=== PATIENT | female | born 1930 | race Two or more races ===

== ENCOUNTER 2017-02-01 18:06 | Emergency (ER) | payer MEDICARE, OTHER ==
--- NOTE | 2017-02-01 20:20 | UC ---
Ear Complaint HPI - HPI Summary HPI Summary: HEARING LOSS LEFT EAR PAST 1 WEEK. ALSO REPORTS PAIN IN LEFT LOWER JAW FOR SEVERAL WEEKS. SEES A DENTIST EVERY 6 MONTHS ([facility]) BUT THINKS MAYBE A FILLING BROKE. TEETH ARE SENSITIVE TO HOT AND COLD. - History of Current Complaint Chief Complaint: UCEar Stated Complaint: TOOTHACHE Time Seen by Provider: 02/01/17 20:02 Hx Obtained From: Patient, Family/[employer]man - Onset/Duration: Gradual Onset, Lasting Days, Still Present Severity Initially: Moderate Severity Currently: Moderate Pain Intensity: 5 Pain Scale Used: 0-10 Numeric Aggravating Factors: Nothing Alleviating Factors: Nothing Associated Signs/Symptoms: Positive: Hearing Loss - Allergies/Home Medications Allergies/Adverse Reactions: Allergies Allergy/AdvReac Type Severity Reaction Status Date / Time No Known Allergies Allergy Verified 02/01/17 19:50 PMH/Surg Hx/FS Hx/Imm Hx Cardiovascular History: Atrial Fibrillation - Surgical History Surgical History: Yes Surgery Procedure, Year, and Place: APPENDECTOMY 1945. , 1962,1964. BILAT CARPAL TUNNEL, 1998. HERNIA REPAIRS X 1999 - Family History Known Family History: Positive: Other - CVA Negative: Hypertension, Diabetes - Social History Alcohol Use: None Substance Use Type: None Smoking Status (MU): Never Smoked Tobacco Have You Smoked in the Last Year: No - Immunization History Most Recent Influenza Vaccination: NONE Most Recent Tetanus Shot: NONE Most Recent Pneumonia Vaccination: NONE Review of Systems Constitutional: Negative ENT: Dental Pain, Ear Ache Respiratory: Negative Cardiovascular: Negative Gastrointestinal: Negative All Other Systems Reviewed And Are Negative: Yes Physical Exam Triage Information Reviewed: Yes Appearance: Well-Appearing, No Pain Distress, Well-Nourished Vital Signs: Initial Vital Signs Temp 98.0 F 02/01/17 19:45 Pulse 99 02/01/17 19:45 Resp 18 02/01/17 19:45 BP 174/94 02/01/17 19:45 Pulse Ox 98 02/01/17 19:45 Vital Signs Reviewed: Yes Eyes: Positive: Conjunctiva Clear ENT: Positive: Hearing grossly normal, Other: - EACS IMPACTED WITH CERUMEN BILATERALLY Dental: Positive: Percussion Tenderness @ - LEFT LOWER 1ST AND 2ND PREMOLARS., Gross Decay/Caries @ - LEFT LOWER 1ST AND 2ND PREMOLARS. Neck: Positive: Supple, Nontender, No Lymphadenopathy Respiratory Exam: Normal Cardiovascular Exam: Normal Abdomen Description: Positive: Soft Musculoskeletal: Positive: No Edema Neurological: Positive: Alert Psychological: Positive: Age Appropriate Behavior Skin: Negative: rashes Ear Complaint Course/Dx - Course Course Of Treatment: EACS UNSUCCESSFULLY IRRIGATED BY RN. REFER TO ENT. FOLLOW- UP WITH DENTIST FOR TOOTH PAIN. PERIDEX MOUTH RINSE DECLINED. - Differential Dx/Diagnosis Provider Diagnoses: 1. BILATERAL CERUMEN IMPACTION. 2. DENTAL PAIN Discharge - Discharge Plan Condition: Stable Disposition: HOME Patient Education Materials: Cerumen Impaction (ED), Toothache (ED) Referrals: Sophia Saavedra MD [Primary Care Provider] - If Needed Additional Instructions: WE WERE UNABLE TO IRRIGATE THE WAX OUT OF YOUR EARS. I BELIEVE THAT THE WAX IS CAUSING YOUR HEARING LOSS. CALL ENT TO SCHEDULE AN APPT FOR EVALUATION AND TREATMENT. [facility] [address] [address] [facility] [address] [facility] [phone] FOLLOW-UP WITH A DENTIST DALIA TO EVALUATE YOUR DENTAL PAIN.
[2017-02-01 21:06] VITALS: BP 146/85
== END 2017-02-01 21:05 | disposition home or self-care (01) ==
LOC: UCEAST 18:06
DX: K08.89 Other specified disorders of teeth and supporting structures (principal); H61.23 Impacted cerumen, bilateral
CPT/HCPCS: 99213; G0463

== ENCOUNTER 2018-10-22 21:52 | Emergency (ER) | payer MEDICARE, OTHER ==
[2018-10-22 22:07] VITALS: BP 206/102
--- NOTE | 2018-10-22 22:25 | UC ---
Abdominal Pain Female HPI - HPI Summary HPI Summary: 88 yo female with RUQ abd pain and nausea which started about 4 PM nausea unable to tolerate her meds know large right adrenal mass no vomiting or fever no CP or sob - History of Current Complaint Chief Complaint: UCAbdominalPain Stated Complaint: ABDOMINAL PAIN Time Seen by Provider: 10/22/18 22:12 Hx Obtained From: Patient Hx Last Menstrual Period: post Onset/Duration: Sudden Onset, Lasting Hours Timing: Constant Severity Initially: Moderate Severity Currently: Moderate Pain Intensity: 7 Pain Scale Used: 0-10 Numeric Location: Discrete At: RUQ Radiates: No Character: Colicy Aggravating Factor(s): Food Alleviating Factor(s): Nothing Associated Signs and Symptoms: Positive: Negative Allergies/Adverse Reactions: Allergies Allergy/AdvReac Type Severity Reaction Status Date / Time seasonal Allergy Mild Eyes Uncoded 10/22/18 22:08 Itchy/Swollen/Red/Watery PMH/Surg Hx/FS Hx/Imm Hx Previously Healthy: No - 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 , 1962,1964. BILAT CARPAL TUNNEL, 1998. HERNIA REPAIRS X 1999 - Family History Known Family History: Positive: Other - CVA Negative: Hypertension, Diabetes - Social History Alcohol Use: None Substance Use Type: None Smoking Status (MU): Never Smoked Tobacco Have You Smoked in the Last Year: No - Immunization History Most Recent Influenza Vaccination: NONE Most Recent Tetanus Shot: NONE Most Recent Pneumonia Vaccination: NONE Review of Systems All Other Systems Reviewed And Are Negative: Yes Constitutional: Positive: Negative Skin: Positive: Negative Eyes: Positive: Negative ENT: Positive: Negative, Dental Pain Cardiovascular: Positive: Negative Gastrointestinal: Positive: Abdominal Pain, Nausea Genitourinary: Positive: Negative Motor: Positive: Negative Neurovascular: Positive: Negative Musculoskeletal: Positive: Negative Neurological: Positive: Negative Psychological: Positive: Negative Physical Exam Triage Information Reviewed: Yes Appearance: Well-Appearing, No Pain Distress Vital Signs: Initial Vital Signs Temp 99 F 10/22/18 21:59 Pulse 93 10/22/18 21:59 Resp 18 10/22/18 21:59 BP 206/102 10/22/18 21:59 Pulse Ox 97 10/22/18 21:59 Vital Signs Reviewed: Yes Eyes: Positive: Conjunctiva Clear ENT: Negative: Hearing grossly normal, Nasal congestion, Nasal drainage, Trismus , Muffled voice, Hoarse voice Neck: Positive: Supple, Nontender Respiratory: Positive: Lungs clear, Normal breath sounds, No respiratory distress Cardiovascular: Negative: RRR Abdomen Description: Positive: No Organomegaly, Distended, Guarding. Negative: Nontender - tender RUQ, CVA Tenderness (R), CVA Tenderness (L) Bowel Sounds: Positive: Present Neurological: Positive: Alert Psychological Exam: Normal Skin Exam: Normal Abd Pain Female Course/Dx - Course Course Of Treatment: D/W DR. Locke - Differential Dx/Diagnosis Provider Diagnosis: Abdominal pain of unknown cause Discharge - Sign-Out/Discharge Documenting (check all that apply): Patient Departure All imaging exams completed and their final reports reviewed: No Studies - Discharge Plan Condition: Stable Disposition: HOME-RECOMMEND TO ED Referrals: Tasha Oliver MD [Primary Care Provider] - Additional Instructions: I suggest you go to the ER for evaluation and treatment - Billing Disposition and Condition Condition: STABLE Disposition: Home-Recommend to ED
== END 2018-10-22 22:30 | disposition home health service (06) ==
LOC: UCEAST 21:52
DX: R10.11 Right upper quadrant pain (principal); R11.0 Nausea; N28.89 Other specified disorders of kidney and ureter; I10 Essential (primary) hypertension; I48.91 Unspecified atrial fibrillation
CPT/HCPCS: 99212; G0463

== ENCOUNTER 2018-10-22 23:25 | Emergency (ER) | payer MEDICARE, OTHER ==
--- NOTE | 2018-10-23 00:21 | ED ---
Abdominal Pain/Female - HPI Summary HPI Summary: Pt is an 88 y/o female who presents to the ED c/o abdominal pain. She was sent here from the for further evaluation. A CT A/P one month ago confirmed a large right adrenal mass. Pt has had RUQ tenderness for a while, however at 16: 00 on 10/22/18 the pain became worse. Pain is rated a 6/10 in severity and radiates to her entire abdomen. She reports nausea, belching, decreased appetite , and chills, but denies any vomiting, diarrhea, hematochezia, constipation, or fever. Pt has an oncology appointment on 10/26/18. PMHx GERD, HTN, AFib. PSHx appendectomy, hernia repair x2, x2, cardioversion x4. Pt is on Xarelto. - History of Current Complaint Chief Complaint: EDAbdPain Stated Complaint: PAIN PER PT Time Seen by Provider: 10/23/18 00:17 Hx Obtained From: Patient, Family/Loftsman/Woman - Hx Last Menstrual Period: post Onset/Duration: Gradual Onset, Lasting Hours - 16:00 yesterday, Worse Since Severity Currently: Moderate Pain Intensity: 6 Pain Scale Used: 0-10 Numeric Location: Discrete At: RUQ Radiates: Yes Radiates to: Other - abdomen Associated Signs and Symptoms: Positive: Nausea. Negative: Fever, Constipation , Vomiting, Diarrhea Allergies/Adverse Reactions: Allergies Allergy/AdvReac Type Severity Reaction Status Date / Time seasonal Allergy Mild Eyes Uncoded 10/22/18 22:08 Itchy/Swollen/Red/Watery PMH/Surg Hx/FS Hx/Imm Hx Endocrine/Hematology History: Denies: Hx Diabetes, Hx Anemia, Hx Unexplained Bleeding Cardiovascular History: Reports: Hx Hypertension, Other Cardiovascular Problems/ Disorders - hx of afib /aflutter 1 year ago Denies: Hx Aneurysm, Hx Angina, Hx Angioplasty, Hx Auto Implanted Cardiovert Defib, Hx Cardiac Arrest, Hx Cardiomegaly, Hx Congenital Heart Disease, Hx Congestive Heart Failure, Hx Coronary Artery Disease, Hx Deep Vein Thrombosis, Hx Embolism, Hx Hypercholesterolemia, Hx Hypotension, Hx Myocardial Infarction, Hx Pacemaker/ICD, Hx Peripheral Vascular Disease, Hx Rheumatic Fever, Hx Syncope , Hx Valvular Heart Disease Respiratory History: Denies: Hx Asthma GI History: Reports: Hx Gastroesophageal Reflux Disease Denies: Hx Cirrhosis, Hx Crohn's Disease, Hx Diverticulosis, Hx Gall Bladder Disease, Hx Gastrointestinal Bleed, Hx Hiatal Hernia, Hx Irritable Bowel, Hx Jaundice, Hx Obstructive Bowel, Hx Ileostomy, Hx Pyloric Stenosis, Hx Ulcer, Other GI Disorders History: Denies: Hx Dialysis, Hx Renal Disease Musculoskeletal History: Reports: 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, Hx Back Problems Denies: Hx Bursitis, Hx Congenital Bone Abnormalities, Hx Fibromyalgia, Hx Gout, Hx Orthopedic Injury, Hx Osteoporosis, Hx Scoliosis, Hx Tendonitis, Other Musculoskeletal History Sensory History: Reports: Hx Contacts or Glasses, Hx Vision Problem Denies: Hx Cataracts, Hx Eye Injury, Hx Eye Prosthesis, Hx Glaucoma, Hx Legally Blind, Hx Macular Degeneration, Hx Deafness, Hx Hearing Aid, Hx Hearing Problem, Other Sensory Impairments Opthamlomology History: Reports: Hx Contacts or Glasses, Hx Vision Problem Denies: Hx Cataracts, Hx Eye Injury, Hx Eye Prosthesis, Hx Glaucoma, Hx Legally Blind, Hx Macular Degeneration, Other Sensory Impairments - Cancer History Hx Chemotherapy: No Hx Radiation Therapy: No Hx Palliative Cancer Treatment: No - Surgical History Surgery Procedure, Year, and Place: APPENDECTOMY 1946. , 1962,1964. BILAT CARPAL TUNNEL, 1998. HERNIA REPAIRS X 2, 1999. CARDIOVERSION X4 Hx Anesthesia Reactions: No Infectious Disease History: No Infectious Disease History: Denies: Hx Clostridium Difficile, Hx Hepatitis, Hx Human Immunodeficiency Virus (HIV), Hx of Known/Suspected MRSA, Hx Shingles, Hx Tuberculosis, History Other Infectious Disease, Traveled Outside the [place] in Last 30 Days - Family History Known Family History: Positive: Other - CVA Negative: Hypertension, Diabetes - Social History Alcohol Use: None Hx Substance Use: No Substance Use Type: Reports: None Hx Tobacco Use: No Smoking Status (MU): Never Smoked Tobacco Have You Smoked in the Last Year: No Review of Systems Positive: Chills, Other - decreased appetite. Negative: Fever Positive: Abdominal Pain - RUQ, Nausea, Other - belching, NEGATIVE: hematochezia , constipation. Negative: Vomiting, Diarrhea All Other Systems Reviewed And Are Negative: Yes Physical Exam - Summary Physical Exam Summary: Appearance: well appearing, no pain distress Skin: warm, dry, reflects adequate perfusion Head/face: normal Eyes: EOMI, CHRIS ENT: mucous membranes moist Neck: supple, non-tender Respiratory: CTA, breath sounds present Cardiovascular: tachycardic rate with irregularly irregular rhythm, pulses symmetrical Abdomen: soft, palpable mass in RUQ, mild-moderate RUQ tenderness Bowel Sounds: present Musculoskeletal: normal, strength/ROM intact Neuro: normal, sensory motor intact, A&Ox3 Triage Information Reviewed: Yes Vital Signs On Initial Exam: Initial Vitals Temp Pulse Resp BP Pulse Ox 98.5 F 124 20 182/109 95 10/22/18 23:27 10/22/18 23:27 10/22/18 23:27 10/22/18 23:27 10/22/18 23:27 Vital Signs Reviewed: Yes Diagnostics - Vital Signs Vital Signs Temp Pulse Resp BP Pulse Ox 10/22/18 23:27 98.5 F 124 20 182/109 95 - Laboratory Result Diagrams: 10/23/18 00:52 10/23/18 00:52 Lab Statement: Any lab studies that have been ordered have been reviewed, and results considered in the medical decision making process. - Ultrasound No standard instances Ultrasound Interpretation Completed By: Radiologist Summary of Ultrasound Findings: Gallbladder US: 1. Large complex right retroperitoneal mass, likely of adrenal origin, consistent with finding on recent abdomen pelvis CT. 2. Cholelithiasis. Borderline gallbladder wall thickening. 3. Dilated common bile duct. No ductal stones or pancreatic head mass clearly identified. MRCP may be helpful for further evaluation if clinically indicated. ED physician reviewed radiology report. - EKG 1:29 Cardiac Rate: NL - 76 bpm EKG Rhythm: Sinus Rhythm Ectopy: PACs Summary of EKG Findings: Q waves inferiorly Re-Evaluation - Re-Evaluation First Eval Re-Evaluation Time: 01:25 Change: Unchanged Comment: Discussed US results. Second Eval Re-Evaluation Time: 02:05 Change: Unchanged Comment: Discussed transfer. Abdominal Pain Fem Course/Dx - Course Course Of Treatment: Nurse's notes reviewed. 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 She has had early satiety and decreased appetite. She is also in rapid A. fib with a history of atrial fibrillation on amiodarone. The A. fib converted with IV fluids and metoprolol. Her pain was improved with treatment here. She did have 2 episodes of vomiting. Her lipase is grossly elevated at nearly 1900 and her LFTs are elevated as well. A right upper quadrant ultrasound of the abdomen showed dilated common bile duct without biliary tree dilation or visible stones in the bile duct. CT scan was not repeated today. I discussed the case with the mapping pilot who suggested transfer as there is no ERCP capabilities here. Additionally, the patient may need debulking surgery. As such, transfer was arranged to [facility]. They are awaiting a bed opening prior to patient transport. She has remained stable here and will transfer when bed is available. - Diagnoses Differential Diagnosis: Positive: Other - Pancreatitis, hepatitis, obstructing mass lesion, cholecystitis, choledocholithiasis Provider Diagnoses: Adrenal tumor, Acute pancreatitis, Acute hepatitis, Rapid atrial fibrillation - Provider Notifications Discussed Care Of Patient With: William Allred Time Discussed With Above Provider: 02:00 Instructed by Provider To: Other - Transfer patient to another GI facility for ERCP. At 2:56 spoke to the transfer center. At 3:02 Dr. Toth accepted pt for admission at [facility]. - Critical Care Time Critical Care Time: 30-74 min - CCT is EXCLUSIVE of separately billable procedures. Discharge - Sign-Out/Discharge Documenting (check all that apply): Patient Departure - Transfer Patient Received Moderate/Deep Sedation with Procedure: No - Discharge Plan Condition: Fair Disposition: TRANS HIGHER LVL OF CARE FAC Referrals: Tasha Oliver MD [Primary Care Provider] - - Billing Disposition and Condition Condition: FAIR Disposition: Trans Higher Lvl of Care Fac - Attestation Statements Document Initiated by Scribe: Yes Documenting Scribe: Sherry Pedro Provider For Whom Scribe is Documenting (Include Credential): Dave Locke MD Scribe Attestation: Sherry Brown, scribed for Dave Locke MD on 10/23/18 at 0638. Scribe Documentation Reviewed: Yes Provider Attestation: The documentation as recorded by the Sherry allen accurately reflects the service I personally performed and the decisions made by , Dave Locke MD Status of Scribe Document: Viewed
[2018-10-23] MEDS ORDERED: Ondansetron INJ* 2 MG/ML VIAL IV ONE (00:35)
[2018-10-23] MEDS ORDERED: Metoprolol Tartrate IV* 1 MG/ML 5 ML VIAL IV ONE (00:35)
[2018-10-23] MEDS ORDERED: Morphine 4 MG/ML VIAL (1 ml) 4 MG/ML VIAL IV ONE ×2 (00:35→09:46)
[2018-10-23 01:00] LABS: ABS Basophils 0 10^3/ul (0-0.2); ABS Eosinophils 0 10^3/ul (0-0.6); ABS Lymphocytes 1.1 10^3/ul (1.0-4.8); ABS Monocytes 0.5 10^3/ul (0-0.8); ABS Neutrophils 7.1 10^3/ul (1.5-7.7); ABS Nucleated RBC 0 10^3/ul; Eosinophil % 0.4 %; Hematocrit 47 % (33-41); Hemoglobin 15.6 g/dL (12.0-16.0); Lymphocyte % 12.4 %; Mean Corpuscular HGB Conc 33 g/dL (31-36); Mean Corpuscular Hemoglobin 31 pg (27-31); Mean Corpuscular Volume 93 fL (80-97); Nucleated Red Blood Cells % 0.2; Red Blood Count 5.11 10^6 /uL (3.70-4.87); Red Cell Distribution Width 15 % (10.5-15); White Blood Count 8.7 10^3/uL (3.5-10.8)
[2018-10-23 01:04] LABS: INR 1.21 (0.82-1.09)
[2018-10-23 01:11] LABS: Calcium 9.3 mg/dL (8.6-10.3)
[2018-10-23] MEDS ORDERED: NS 0.9% 1000 ML** 1,000 ML IV ONE (01:15)
[2018-10-23 01:17] LABS: Albumin/Globulin Ratio 1.1 (1-3); BUN/Creatinine Ratio 36.8 (8-20); C Reactive Protein 5.33 mg/L (<8.01); EGFR African American 86.9 (>60); EGFR Non-African American 71.8 (>60); Globulin 3.5 g/dL (2-4); Total Protein 7.5 g/dL (6.4-8.9)
[2018-10-23 01:26] LABS: Troponin I 0.01 ng/mL (<0.04)
[2018-10-23 02:00] LABS: Mean Platelet Volume 6.9 fL (7.4-10.4); Platelet Count 243 10^3/uL (150-450)
[2018-10-23 02:08] LABS: Potassium 3.8 mmol/L (3.5-5.0)
[2018-10-23 02:13] LABS: Urine Appearance Clear; Urine Bacteria Absent (Absent); Urine Bilirubin Negative (Negative); Urine Blood Negative (Negative); Urine Color Amber; Urine Glucose Negative (Negative); Urine Ketones Negative (Negative); Urine Nitrite Negative (Negative); Urine Protein 1+(30 mg/dL) (Negative); Urine Red Blood Cell 1+(3-5/hpf) (Absent); Urine Specific Gravity 1.021 (1.010-1.030); Urine Squamous Epithelial Cell Present (Absent); Urine Urobilinogen Positive (Negative); Urine White Blood Cell 2+(11-20/hpf) (Absent)
[2018-10-23] MEDS ORDERED: Ondansetron INJ* 2 MG/ML VIAL ONE (02:38)
[2018-10-23] MEDS ORDERED: NS 0.9% 1000 ML** 1,000 ML IV SCH (03:15)
[2018-10-23] MEDS ORDERED: diPHENhydraMINE IV* 50 MG/ML 1 ml VIAL (BENADRYL) IV ONE (03:26)
[2018-10-23] MEDS ORDERED: Metoclopramide IV* 5 MG/ML 2 ML VIAL IV ONE (03:26)
--- NOTE | 2018-10-23 07:30 | ED ---
Progress - Progress Note Progress Note: Pt is a signout from Dr. Locke pending transfer to a higher level of care facility. She has a bed available at [facility] and will be sent there as soon as possible. Re-Evaluation - Re-Evaluation First Eval Re-Evaluation Time: 01:25 Change: Unchanged Second Eval Re-Evaluation Time: 02:05 Change: Unchanged Course/Dx - Course Course Of Treatment: She remained stable here although she did require a repeat on her morphine shot before she left. - Diagnoses Provider Diagnoses: Adrenal tumor, Acute pancreatitis, Acute hepatitis, Rapid atrial fibrillation Discharge - Sign-Out/Discharge Documenting (check all that apply): Patient Departure, Receiving Sign-Out Receiving patient FROM: Dave Locke - Discharge Plan Condition: Fair Disposition: TRANS HIGHER LVL OF CARE FAC Referrals: Tasha Oliver MD [Primary Care Provider] - - Billing Disposition and Condition Condition: FAIR Disposition: Trans Higher Lvl of Care Fac - Attestation Statements Document Initiated by Scribe: Yes Documenting Scribe: Bhavana Diaz Provider For Whom Joan is Documenting (Include Credential): Michael Bangura MD. Scribe Attestation: Bhavana Brown, scribed for Michael Bangura MD. on 10/23/18 at 1459. Scribe Documentation Reviewed: Yes Provider Attestation: The documentation as recorded by the scribe, Bhavana Diaz accurately reflects the service I personally performed and the decisions made by me, Michael Bangura MD. Status of Scribe Document: Viewed
[2018-10-23 12:05] VITALS: BP 171/88
== END 2018-10-23 12:30 | disposition short-term general hospital (02) ==
LOC: ED 23:25
DX: D35.00 Benign neoplasm of unspecified adrenal gland (principal); K85.90 Acute pancreatitis without necrosis or infection, unspecified; B17.9 Acute viral hepatitis, unspecified; K80.20 Calculus of gallbladder without cholecystitis without obstruction; K83.8 Other specified diseases of biliary tract; R94.31 Abnormal electrocardiogram [ECG] [EKG]; I10 Essential (primary) hypertension; I48.91 Unspecified atrial fibrillation; K21.9 Gastro-esophageal reflux disease without esophagitis; M46.90 Unspecified inflammatory spondylopathy, site unspecified; R11.0 Nausea; N28.89 Other specified disorders of kidney and ureter
CPT/HCPCS: 36415; 76705; 80053; 81003; 81015; 83605; 83690; 84484; 85025; 85610; 86140; 87086; 93005; 96361; 96374; 96375; 96376; 99285; J1200; J2270; J2405; J2765; J3490

== ENCOUNTER 2019-05-04 11:21 | Emergency (ER) | payer MEDICARE, OTHER ==
[2019-05-04] MEDS ORDERED: Silver Nitrate/Potassium Nitr* 1 EA STICK TOPICAL ONE (11:37)
--- NOTE | 2019-05-04 12:13 | UC ---
Epistaxis Nasal HPI - HPI Summary HPI Summary: 88yo woman on Xarelto, with episode of epistaxis yesterday, which resolved. She arrives today after approximately 15 minutes of bleeding from the nose, passing clots of blood. No recent URI or provocative factors. Last hemoglobin 15.9 in December 2018. - History of Current Complaint Stated Complaint: NOSE BLEED Time Seen by Provider: 05/04/19 11:35 Hx Obtained From: Patient Hx Last Menstrual Period: post Onset/Duration: Sudden Onset, Lasting Minutes - came after 15 minutes of nose bleeding. Timing: Constant Severity Initially: Moderate Severity Currently: Moderate Aggravating Factor(s): Nothing Alleviating Factor(s): Pressure Associated Signs And Symptoms: Positive: Negative Related Hx: Anticoagulants - Allergies/Home Medications Allergies/Adverse Reactions: Allergies Allergy/AdvReac Type Severity Reaction Status Date / Time seasonal Allergy Mild Eyes Uncoded 05/04/19 11:45 Itchy/Swollen/Red/Watery Home Medications: Home Medications Furosemide [Lasix] 20 mg PO DAILY WITH MEAL 05/04/19 [History Confirmed 05/04/19 ] Metoprolol Succinate 50 mg PO DAILY WITH MEAL 05/04/19 [History Confirmed ] PMH/Surg Hx/FS Hx/Imm Hx Previously Healthy: Yes Cardiovascular History: Hypertension, Atrial Fibrillation Cancer History: Other - adrenal tumor being followed by Dr. Woods. - Surgical History Surgical History: Yes Surgery Procedure, Year, and Place: APPENDECTOMY 1946. , 1962,1965. BILAT CARPAL TUNNEL, 1998. HERNIA REPAIRS X 2, 2000. CARDIOVERSION X4 - Family History Known Family History: Positive: Other - CVA Negative: Hypertension, Diabetes - Social History Occupation: Retired Lives: With Family - lives at [place] with her spouse Alcohol Use: None Substance Use Type: None Smoking Status (MU): Never Smoked Tobacco Have You Smoked in the Last Year: No - Immunization History Most Recent Influenza Vaccination: NONE Most Recent Tetanus Shot: NONE Most Recent Pneumonia Vaccination: NONE Review of Systems All Other Systems Reviewed And Are Negative: Yes Constitutional: Positive: Negative Skin: Positive: Negative Eyes: Positive: Negative ENT: Positive: Epistaxis Respiratory: Negative: Cough Cardiovascular: Positive: Other - hx of rate controlled atrial fibrillation.. Negative: Chest Pain Genitourinary: Positive: Negative Motor: Positive: Negative Neurovascular: Positive: Negative Musculoskeletal: Positive: Negative Neurological: Positive: Negative Physical Exam Triage Information Reviewed: Yes Appearance: Well-Appearing, No Pain Distress Eyes: Positive: Conjunctiva Clear ENT: Positive: Pharynx normal, TMs normal, Other - Initially had copious flow from right nares. Nasal plug applied for 30 minutes. With verbal consent, applied approx 1 cc of topical 4% lidocaine. Cauterized bleeding area of anterior septum using silver nitrate. Applied topical triple antibiotic. No re- bleeding after 10 minutes. Neck: Positive: Supple, Nontender, No Lymphadenopathy Respiratory: Positive: Lungs clear, Normal breath sounds Cardiovascular Exam: Other - irregular rhythm, rate variable, up to 100. No murmur appreciated along left sternal border. Musculoskeletal Exam: Normal Neurological: Positive: Alert, Muscle Tone Normal Psychological Exam: Normal Skin Exam: Normal Re-Evaluation - Re-Evaluation First Eval Re-Evaluation Time: 12:55 Change: Improved - No rebleeding. Epistaxis Nasal Course/Dx - Course Course Of Treatment: Nasal cautery using silver nitrate. Antiiotic ointment applied. - Differential Dx/Diagnosis Differential Diagnosis/HQI/PQRI: Coagulopathy, Epistaxis Provider Diagnosis: Epistaxis Discharge ED - Sign-Out/Discharge Documenting (check all that apply): Patient Departure All imaging exams completed and their final reports reviewed: No Studies - Discharge Plan Condition: Stable Disposition: HOME Patient Education Materials: Nosebleed (ED) Referrals: Tasha Oliver MD [Primary Care Provider] - Cain Dumont MD [Medical Doctor] - Additional Instructions: If your nose re-bleeds in the next day, nasal packing will need to be inserted. Follow up with Dr. Dumont if you have continued small bleeding from the nose. HOLD dose of Xarelto this evening and check in with Dr. Oliver regarding bleeding and elevated blood pressure. Please ensure that you have a blood pressure re-check at [place] in the next 1- 2 days. Apply topical antibiotic ointment to the nares as we discussed, and use saline spray to keep the passages moistened (this is available as [place] spray or toical saline in any pharmacy or in [facility]. - Billing Disposition and Condition Condition: STABLE Disposition: Home
[2019-05-04] MEDS ORDERED: Lidocaine 2% JELLY* 10 ML JELLY TOPICAL ONE (12:23)
[2019-05-04] MEDS ORDERED: Lidocaine 4% TOPICAL* 50 ML TOP.SOLN TOPICAL ONE (12:28)
[2019-05-04 13:10] VITALS: BP 150/99
== END 2019-05-04 13:25 | disposition home or self-care (01) ==
LOC: UCEAST 11:21
DX: R04.0 Epistaxis (principal); I10 Essential (primary) hypertension; I48.91 Unspecified atrial fibrillation; Z79.01 Long term (current) use of anticoagulants; Z91.09 Other allergy status, other than to drugs and biological substances
CPT/HCPCS: 30901; 99211; A9270-GY; G0463

== ENCOUNTER 2019-07-12 10:21 | Emergency (ER) | payer MEDICARE, OTHER ==
[2019-07-12 10:34] VITALS: BP 134/93
--- NOTE | 2019-07-12 10:48 | UC ---
Lower Extremity/Ankle HPI - HPI Summary HPI Summary: 89 yo female presents with LEFT leg complaint. She tells me that for the last 2 weeks she has been having LEFT calf pain that is worst when going from a lying to a standing position to weight bear. Pain is also present with dorsiflexion. She was on Xarelto, but stopped this in early april due to nosebleeds -- pt states Dr. Kim stopped this for her and did not place her on an alternative. She denies SOB, chest pain, abdominal pain, numbness, tingling, or trauma to the area. - History of Current Complaint Chief Complaint: UCLowerExtremity Stated Complaint: RIGHT LEG ISSUE Time Seen by Provider: 07/12/19 10:35 Hx Obtained From: Patient Hx Last Menstrual Period: post Onset/Duration: Sudden Onset Severity Initially: Moderate Severity Currently: Moderate Pain Intensity: 8 Pain Scale Used: 0-10 Numeric - Allergies/Home Medications Allergies/Adverse Reactions: Allergies Allergy/AdvReac Type Severity Reaction Status Date / Time seasonal Allergy Mild Eyes Uncoded 07/12/19 10:34 Itchy/Swollen/Red/Watery PMH/Surg Hx/FS Hx/Imm Hx Cardiovascular History: Atrial Fibrillation, Other - Cariomyopathy - Surgical History Surgical History: Yes Surgery Procedure, Year, and Place: APPENDECTOMY 1946. , 1963,1965. BILAT CARPAL TUNNEL, 1998. HERNIA REPAIRS X 2, 2000. CARDIOVERSION X4 - Family History Known Family History: Positive: Other - CVA Negative: Hypertension, Diabetes - Social History Lives: Assisted Living Alcohol Use: None Substance Use Type: None Smoking Status (MU): Never Smoked Tobacco Have You Smoked in the Last Year: No - Immunization History Most Recent Influenza Vaccination: NONE Most Recent Tetanus Shot: NONE Most Recent Pneumonia Vaccination: NONE Review of Systems All Other Systems Reviewed And Are Negative: No Constitutional: Positive: Negative Skin: Positive: Negative Respiratory: Positive: Negative Cardiovascular: Positive: Negative Neurovascular: Positive: Negative Musculoskeletal: Positive: Other: - Right calf pain Neurological: Positive: Negative Psychological: Positive: Negative Physical Exam - Summary Physical Exam Summary: GENERAL: NAD. WDWN. No pain distress. SKIN: No rashes, sores, lesions, or open wounds. CHEST: No accessory muscle use. Breathing comfortably and in no distress. CV: Pulses intact PT and DP. Cap refill <2seconds MSK: RIGHT CALF: Mild TTP about calf. Positive aziza sign. FROM at right ankle. NEURO: Alert. Sensations intact and symmetric B/L LEs PSYCH: Age appropriate behavior. Triage Information Reviewed: Yes Vital Signs: Initial Vital Signs Temp 98.7 F 07/12/19 10:28 Pulse 77 07/12/19 10:28 Resp 16 07/12/19 10:28 BP 134/93 07/12/19 10:28 Pulse Ox 98 07/12/19 10:28 Vital Signs Reviewed: Yes Diagnostics - Radiology US right leg Radiology Interpretation Completed By: Radiologist Summary of Radiographic Findings: IMPRESSION: DEEP VENOUS THROMBOSIS INVOLVING BOTH POSTERIOR TIBIAL VEINS WELL ONE OF THE PAIRED PERONEAL VEINS. Lower Extremity Course/Dx - Course Course Of Treatment: US as above. Discussed case with Dr. Kim (pt's full fashioned garment knitter) and he states that he did not take her off Xarelto, but pt stopped this herself due to nosebleeds and he made her aware of risks. He agrees with placing her back on this if pt is amenable. I had a long discussion with the pt about her US results and advised restarting her Xarelto - she did not want to do this. I told her that, if her nosebleeds were her only concern with the Xarelto, her nosebleeds can be treated by ENT for likely cautery. She continued to decline or say "I will think about it". I made her aware that her symptoms and clots will likely worsen and she is drastically increasing her risk of PE, cardiac thrombus, CVA, more DVTs, and, if left untreated, will likely results in or permanent loss of function. Pt voiced understanding and continued to say that she would "think about it". Advised to call or f/u with PCP and/or Dr. Kim if she has questions or wishes to renew her rx for Xarelto. - Differential Dx/Diagnosis Provider Diagnosis: DVT (deep venous thrombosis) Discharge ED - Sign-Out/Discharge Documenting (check all that apply): Patient Departure All imaging exams completed and their final reports reviewed: Yes - Discharge Plan Condition: Stable Disposition: HOME Patient Education Materials: Deep Vein Thrombosis (ED) Referrals: Tasha Oliver MD [Primary Care Provider] - Additional Instructions: If you develop a fever, shortness of breath, chest pain, new or worsening symptoms - please call your PCP or go to the ED immediately. I recommend that you restart your Xarelto to prevent further clots --- you did not want to do this today. If you do not restart your Xarelto it is likely that your symptoms will worsen and you will likely have more clots that could cause lung, heart, and brain problems with likely or permanent disability. - Billing Disposition and Condition Condition: STABLE Disposition: Home
== END 2019-07-12 11:40 | disposition home or self-care (01) ==
LOC: UCEAST 10:21
DX: I82.441 Acute embolism and thrombosis of right tibial vein (principal); M79.662 Pain in left lower leg; Z91.09 Other allergy status, other than to drugs and biological substances
CPT/HCPCS: 99212; G0463